=== PATIENT | male | born 2000 | race Caucasian/White ===

== ENCOUNTER 2020-07-31 00:34 | Emergency (ER) | payer SELFPAY ==
[~2020-07-31] VITALS: Ht 177.8 cm; Wt 68.1 kg
[~2020-07-31 00:34] MED LIST: NO HOME MEDS; TAM75CAP PO; TAMIFLU45 MG OR; ULTRAM50 M1 PO; ZOFRAN ODT4 MG PO
[2020-07-31] MEDS ORDERED: MOTRIN800 MG PO (01:05)
[2020-07-31] MEDS ORDERED: LORTAB 5/3255 MG PO (01:05)
[2020-07-31 01:15] VITALS: BP 152/66
== END 2020-07-31 01:24 | disposition home or self-care (01) | DRG 563 ==
LOC: ED 00:34
PROC: 2W3EX1Z Immobilization of Right Hand using Splint (ICD-10-PCS; principal; 2020-07-31)
DX: S62.306A Unspecified fracture of fifth metacarpal bone, right hand, initial encounter for closed fracture (principal); W22.09XA Striking against other stationary object, initial encounter; Y92.009 Unspecified place in unspecified non-institutional (private) residence as the place of occurrence of the external cause

== ENCOUNTER 2021-02-06 04:47 | Emergency (ER) | payer SELFPAY ==
[~2021-02-06] VITALS: Ht 177.8 cm; Wt 63.6 kg
[~2021-02-06 04:47] MED LIST changes: +LORTAB 5/3255 MG PO; +MOTRIN800 MG PO
[2021-02-06] MEDS ORDERED: PERCOCET 5/321 COMBO PO (05:31)
[2021-02-06] MEDS ORDERED: GENTAMICIN0.3 % OU (05:31)
[2021-02-06 05:47] VITALS: BP 110/59
== END 2021-02-06 05:50 | disposition home or self-care (01) | DRG 125 ==
LOC: ED 04:47
DX: H10.9 Unspecified conjunctivitis (principal)

== ENCOUNTER 2022-02-19 12:20 | Emergency (ER) | payer OTHER ==
[~2022-02-19] VITALS: Ht 177.8 cm; Wt 73.0 kg
[~2022-02-19 12:20] MED LIST changes: +GENTAMICIN0.3 % OU; +PERCOCET 5/321 COMBO PO
[2022-02-19 13:11] VITALS: BP 112/65
[2022-02-19 14:30] VITALS: BP 107/61
[2022-02-19] MEDS ORDERED: TRAMADOL HYDROC50 M1 PO (14:41)
[2022-02-19] MEDS ORDERED: METHOCARBAMOL500 MG PO (14:41)
[2022-02-19 14:54] VITALS: BP 107/61
== END 2022-02-19 15:03 | disposition home or self-care (01) | DRG 90 ==
LOC: ED 12:20
DX: S06.0X9A Concussion with loss of consciousness of unspecified duration, initial encounter (principal); H10.9 Unspecified conjunctivitis; V49.40XA Driver injured in collision with unspecified motor vehicles in traffic accident, initial encounter